=== PATIENT | female | born 1930 | race Caucasian/White ===

== ENCOUNTER 2018-01-01 09:03 | Emergency (ER) | payer MEDICARE, OTHER ==
[~2018-01-01] VITALS: Ht 175.3 cm; Wt 64.0 kg
[~2018-01-01 09:03] MED LIST: ASPI-1265 PO; ATOR10TA87 PO; BUDE10.22 INH; CALC500T63 PO; CYAN-19 PO; MONT10TA21 PO; MULT-1074 PO; OMEG500C PO; RAMI2.5C2 PO; VITA100C5 PO; ZOL50T PO
[2018-01-01 10:43] LABS: ALANINE AMINOTRANSFERASE 9 U/L (12-78); ALBUMIN 2.9 G/DL (3.4-5.0); ALBUMIN/GLOBULIN RATIO 0.8 (1.1-1.5); ALKALINE PHOSPHATASE 76 IU/L (46-116); ANION GAP 8 (8-16); ASPARTATE AMINO TRANSFERASE 17 U/L (10-37); BILIRUBIN,TOTAL 0.7 MG/DL (0.1-1.0); BLOOD UREA NITROGEN 12 MG/DL (7-18); BUN/CREATININE RATIO 10.2 (6.6-38.0); CALCIUM 10.1 MG/DL (8.5-10.1); CHLORIDE 98 MMOL/L (99-107); CREATININE 1.18 MG/DL (0.40-0.90); GLUCOSE 119 MG/DL (70-104); POTASSIUM 3.9 MMOL/L (3.5-5.1); SODIUM 132 MMOL/L (135-145); TOTAL CARBON DIOXIDE 25.7 MMOL/L (24-32); TOTAL PROTEIN 6.7 G/DL (6.4-8.2); eGFR 44 ML/MIN
[2018-01-01 11:01] LABS: BASOPHILS % (AUTO) 0.1 % (0-1); EOSINOPHILS % (AUTO) 0 % (0-6); HEMATOCRIT 41.1 % (35.0-45.0); HEMOGLOBIN 13.6 g/dl (12.0-16.0); LYMPHOCYTES # (AUTO) 0.9 X10'3 (1.1-4.8); LYMPHOCYTES % (AUTO) 5.5 % (21-51); MEAN CORPUSCULAR HEMOGLOBIN 33.4 PG (27.0-31.0); MEAN CORPUSCULAR HGB CONC 33.2 % (33.0-36.5); MEAN CORPUSCULAR VOLUME 100.6 FL (78-98); MEAN PLATELET VOLUME 7.4 FL (7.4-10.4); MONOCYTES # (AUTO) 1.4 X10'3 (0-0.9); MONOCYTES % (AUTO) 8.2 % (2-12); NEUTROPHILS # (AUTO) 14.4 X10'3 (1.8-7.7); NEUTROPHILS % (AUTO) 86.2 % (42-75); PLATELET COUNT 200 X10'3 (140-440); RED BLOOD COUNT 4.09 X10'6 (4.20-5.60); RED CELL DISTRIBUTION WIDTH 12.5 % (11.5-14.5); WHITE BLOOD COUNT 16.7 X10'3 (4.5-11.0)
[2018-01-01 11:14] LABS: INR 1.1 INR; PARTIAL THROMBOPLASTIN TIME 31 SECONDS (22-32); PROTHROMBIN TIME 11.4 SECONDS (9.0-12.0)
[2018-01-01] MEDS ORDERED: normal saline 1000ML IV soln IVB ONE (12:05)
[2018-01-01 12:43] LABS: PLATELET ESTIMATE NORMAL; TOTAL CELLS COUNTED 100
[2018-01-01 13:39] VITALS: BP 111/58
== END 2018-01-01 13:42 | disposition home or self-care (01) ==
LOC: ER 09:03
DX: R19.7 Diarrhea, unspecified (principal); R51 Headache; R11.2 Nausea with vomiting, unspecified; Z79.82 Long term (current) use of aspirin; Z98.890 Other specified postprocedural states; Z79.899 Other long term (current) drug therapy
CPT/HCPCS: 36415; 70450; 74176; 80053; 85025; 85610; 85730; 96360; 99284; J7030

== ENCOUNTER 2018-01-02 09:19 | Inpatient (IN) | payer MEDICARE, OTHER ==
[~2018-01-02] VITALS: Ht 175.3 cm; Wt 65.0 kg
[2018-01-02] MEDS ORDERED: normal saline 1000ML IV soln IVB ONE (10:35)
[2018-01-02 10:54] LABS: BASOPHILS % (AUTO) 0.2 % (0-1); EOSINOPHILS % (AUTO) 0 % (0-6); HEMATOCRIT 45.2 % (35.0-45.0); HEMOGLOBIN 15.2 g/dl (12.0-16.0); LYMPHOCYTES # (AUTO) 1.2 X10'3 (1.1-4.8); LYMPHOCYTES % (AUTO) 5.6 % (21-51); MEAN CORPUSCULAR HEMOGLOBIN 33.7 PG (27.0-31.0); MEAN CORPUSCULAR HGB CONC 33.7 % (33.0-36.5); MEAN CORPUSCULAR VOLUME 100.2 FL (78-98); MEAN PLATELET VOLUME 7.4 FL (7.4-10.4); MONOCYTES # (AUTO) 1.6 X10'3 (0-0.9); MONOCYTES % (AUTO) 7.4 % (2-12); NEUTROPHILS # (AUTO) 18.7 X10'3 (1.8-7.7); NEUTROPHILS % (AUTO) 86.8 % (42-75); PLATELET COUNT 220 X10'3 (140-440); RED BLOOD COUNT 4.51 X10'6 (4.20-5.60); RED CELL DISTRIBUTION WIDTH 12.6 % (11.5-14.5); WHITE BLOOD COUNT 21.5 X10'3 (4.5-11.0)
[2018-01-02 11:08] LABS: ALANINE AMINOTRANSFERASE 10 U/L (12-78); ALBUMIN 2.7 G/DL (3.4-5.0); ALBUMIN/GLOBULIN RATIO 0.7 (1.1-1.5); ALKALINE PHOSPHATASE 82 IU/L (46-116); ANION GAP 9 (8-16); ASPARTATE AMINO TRANSFERASE 16 U/L (10-37); BILIRUBIN,TOTAL 0.5 MG/DL (0.1-1.0); BLOOD UREA NITROGEN 17 MG/DL (7-18); BUN/CREATININE RATIO 16.5 (6.6-38.0); CALCIUM 9.6 MG/DL (8.5-10.1); CHLORIDE 99 MMOL/L (99-107); CREATININE 1.03 MG/DL (0.40-0.90); GLUCOSE 133 MG/DL (70-104); POTASSIUM 3.6 MMOL/L (3.5-5.1); SODIUM 134 MMOL/L (135-145); TOTAL CARBON DIOXIDE 25.6 MMOL/L (24-32); TOTAL PROTEIN 6.4 G/DL (6.4-8.2); eGFR 51 ML/MIN
[2018-01-02 11:12] LABS: PLATELET ESTIMATE NORMAL; TOTAL CELLS COUNTED 100
[2018-01-02 11:41] LABS: CLARITY,URINE CLOUDY (Clear); COLOR,URINE YELLOW (Yellow); GLUCOSE, URINE NEGATIVE (Neg); KETONES,URINE NEGATIVE (Neg); LEUKOCYTE ESTERASE ,URINE LARGE (Neg); NITRITES, URINE NEGATIVE (Neg); OCCULT BLOOD,URINE MODERATE (Neg); PH,URINE 6.5 (4.8-8.0); PROTEIN,URINE TRACE mg/dl (Neg); UROBILINOGEN,URINE 0.2 E.U/dL (0.2-1.0)
[2018-01-02 11:56] LABS: UA COLLECTION TYPE URINAL
[2018-01-02 12:05] LABS: BACTERIA,URINE 3+ /HPF (Neg); SQUAMOUS EPITHELIAL CELL,UR FEW /LPF (FEW)
[2018-01-02] MEDS ORDERED: CefTRIAXone 2gm/D5W 50ml 50 ML IV ONE (12:10)
[2018-01-02] MEDS ORDERED: iohexol 300mg/ml 100ml inj. ONE (12:56)
[2018-01-02] MEDS ORDERED: vancomycin 125mg/5ml ORAL solution 5ml UD bottle PO SCH (15:30)
[2018-01-02] MEDS ORDERED: ondansetron/PF 4mg/2ml inj IV PRN (21:55)
[2018-01-02] MEDS ORDERED: vancomycin 250MG/10ML UD oral solution 10ML BOTTLE PO SCH (21:55)
[2018-01-02] MEDS ORDERED: acetaminophen 325mg tablet PO PRN ×2 (21:55)
[2018-01-02] MEDS ORDERED: metroNIDAZOLE-Flagyl 500mg/NS 100 ML IV ONE (22:15)
[2018-01-02 22:50] VITALS: BP 145/74
[2018-01-02] MEDS: normal saline 1000ml 1,000 ML IV SCH (22:50)
[2018-01-03] MEDS: vancomcyin 250mg capsules PO SCH ×3 (01:52→15:29)
[2018-01-03 02:27] LABS: BASOPHILS % (AUTO) 0 % (0-1); EOSINOPHILS % (AUTO) 0 % (0-6); HEMATOCRIT 44.6 % (35.0-45.0); HEMOGLOBIN 14.9 g/dl (12.0-16.0); LYMPHOCYTES # (AUTO) 1.2 X10'3 (1.1-4.8); LYMPHOCYTES % (AUTO) 5.2 % (21-51); MEAN CORPUSCULAR HEMOGLOBIN 33.6 PG (27.0-31.0); MEAN CORPUSCULAR HGB CONC 33.5 % (33.0-36.5); MEAN CORPUSCULAR VOLUME 100.2 FL (78-98); MEAN PLATELET VOLUME 7.5 FL (7.4-10.4); MONOCYTES # (AUTO) 1.8 X10'3 (0-0.9); MONOCYTES % (AUTO) 7.7 % (2-12); NEUTROPHILS # (AUTO) 20.2 X10'3 (1.8-7.7); NEUTROPHILS % (AUTO) 87.1 % (42-75); PLATELET COUNT 225 X10'3 (140-440); RED BLOOD COUNT 4.45 X10'6 (4.20-5.60); RED CELL DISTRIBUTION WIDTH 12.8 % (11.5-14.5); WHITE BLOOD COUNT 23.2 X10'3 (4.5-11.0)
[2018-01-03 02:36] LABS: ALBUMIN 2.3 G/DL (3.4-5.0); ANION GAP 9 (8-16); BLOOD UREA NITROGEN 18 MG/DL (7-18); BUN/CREATININE RATIO 20.2 (6.6-38.0); CALCIUM 9.2 MG/DL (8.5-10.1); CHLORIDE 104 MMOL/L (99-107); CREATININE 0.89 MG/DL (0.40-0.90); GLUCOSE 133 MG/DL (70-104); SODIUM 136 MMOL/L (135-145); TOTAL CARBON DIOXIDE 22.8 MMOL/L (24-32); eGFR 60 ML/MIN
[2018-01-03] MEDS: albuterol 2.5 MG/3 ML nebule NEB SCH ×4 (02:41→19:54)
[2018-01-03 02:44] LABS: POTASSIUM 3.8 MMOL/L (3.5-5.1)
[2018-01-03 02:52] LABS: PLATELET ESTIMATE NORMAL; TOTAL CELLS COUNTED 100
[2018-01-03 07:10] VITALS: BP 124/63
[2018-01-03] MEDS: budesonide 0.5mg/2ml UD nebule IH SCH ×2 (07:56→19:55)
[2018-01-03] MEDS ORDERED: [UNRECOGNIZED DRUG - OTHER] INH SCH (08:00)
[2018-01-03] MEDS ORDERED: BUDESONIDE INH SCH (08:00)
[2018-01-03] MEDS ORDERED: FORMOTEROL FUMARATE INH SCH (08:00)
[2018-01-03] MEDS ORDERED: metroNIDAZOLE-Flagyl 500mg/NS 100 ML IV ONE (08:00)
[2018-01-03] MEDS: sertraline 50mg tablet PO SCH (08:19)
[2018-01-03] MEDS: montelukast 10mg tablet PO SCH (08:19)
[2018-01-03 09:12] LABS: C DIFF ANTIGEN POSITIVE (NEGATIVE); C DIFF SPECIMEN=DIARRHEA? ACCEPTABLE; C DIFFICILE TOXINS A&B POSITIVE (Neg)
[2018-01-03] MEDS ORDERED: potassium Cl 20 mEq SR tablet PO PRN ×2 (10:15)
[2018-01-03] MEDS ORDERED: magnesium 4gm in 100ml NS 100 ML IV PRN (10:15)
[2018-01-03] MEDS ORDERED: potassium Cl 40MEQ/NS 500ml 500 ML IV PRN ×2 (10:15)
[2018-01-03] MEDS ORDERED: magnesium Cl slow-release 64mg tablet PO PRN (10:15)
[2018-01-03] MEDS: normal saline 1000ml 1,000 ML IV SCH ×2 (11:12→15:34)
[2018-01-03 11:19] VITALS: BP 117/63
[2018-01-03] MEDS: metroNIDAZOLE-Flagyl 500mg/NS 100 ML IV SCH ×3 (12:12→23:31)
[2018-01-03 20:00] VITALS: BP 112/61
[2018-01-03] MEDS: atorvastatin 10mg tablet PO SCH (20:21)
[2018-01-03] MEDS: vancomycin 125mg/5ml ORAL solution 5ml UD bottle PO SCH (20:22)
[2018-01-04] VITALS: BP 111/58
[2018-01-04] MEDS: albuterol 2.5 MG/3 ML nebule NEB SCH ×4 (01:48→20:15)
[2018-01-04] MEDS: vancomycin 125mg/5ml ORAL solution 5ml UD bottle PO SCH ×2 (02:07→07:54)
[2018-01-04] MEDS: normal saline 1000ml 1,000 ML IV SCH (04:58)
[2018-01-04 05:46] LABS: BASOPHILS % (AUTO) 0 % (0-1); EOSINOPHILS % (AUTO) 0 % (0-6); HEMATOCRIT 38.6 % (35.0-45.0); LYMPHOCYTES # (AUTO) 1.1 X10'3 (1.1-4.8); LYMPHOCYTES % (AUTO) 4.2 % (21-51); MEAN CORPUSCULAR HEMOGLOBIN 33.3 PG (27.0-31.0); MEAN CORPUSCULAR HGB CONC 33.6 % (33.0-36.5); MEAN CORPUSCULAR VOLUME 99.1 FL (78-98); MEAN PLATELET VOLUME 7.3 FL (7.4-10.4); MONOCYTES # (AUTO) 1.7 X10'3 (0-0.9); MONOCYTES % (AUTO) 6.9 % (2-12); NEUTROPHILS # (AUTO) 22.5 X10'3 (1.8-7.7); NEUTROPHILS % (AUTO) 88.9 % (42-75); PLATELET COUNT 224 X10'3 (140-440); RED CELL DISTRIBUTION WIDTH 12.8 % (11.5-14.5)
[2018-01-04 05:57] LABS: ALBUMIN 1.9 G/DL (3.4-5.0); ANION GAP 9 (8-16); BLOOD UREA NITROGEN 22 MG/DL (7-18); BUN/CREATININE RATIO 25.3 (6.6-38.0); CALCIUM 8.6 MG/DL (8.5-10.1); CHLORIDE 105 MMOL/L (99-107); CREATININE 0.87 MG/DL (0.40-0.90); GLUCOSE 131 MG/DL (70-104); POTASSIUM 3.2 MMOL/L (3.5-5.1); SODIUM 138 MMOL/L (135-145); TOTAL CARBON DIOXIDE 23.9 MMOL/L (24-32); eGFR 62 ML/MIN
[2018-01-04 06:02] LABS: WHITE BLOOD COUNT 25.3 X10'3 (4.5-11.0)
[2018-01-04 07:37] LABS: PLATELET ESTIMATE NORMAL; TOTAL CELLS COUNTED 100
[2018-01-04] MEDS ORDERED: potassium Cl oral solution 20 MEQ/15 ML PO PRN (07:40)
[2018-01-04] MEDS: montelukast 10mg tablet PO SCH (07:52)
[2018-01-04] MEDS: metroNIDAZOLE-Flagyl 500mg/NS 100 ML IV SCH ×2 (07:52→16:38)
[2018-01-04] MEDS: sertraline 50mg tablet PO SCH (07:56)
[2018-01-04] MEDS: budesonide 0.5mg/2ml UD nebule IH SCH ×2 (08:00→20:15)
[2018-01-04 08:12] VITALS: BP 104/65
[2018-01-04 11:30] VITALS: BP 105/58
[2018-01-04] MEDS ORDERED: vancomycin 125mg/5ml ORAL solution 5ml UD bottle PO SCH (14:00)
[2018-01-04] MEDS: lactose-reduced food (Ensure Enlive) - 237ml bottle PO SCH ×2 (18:26→21:03)
[2018-01-04 20:00] VITALS: BP 123/66
[2018-01-04] MEDS ORDERED: vancomcyin 250mg capsules PO ONE (20:50)
[2018-01-04] MEDS: atorvastatin 10mg tablet PO SCH (20:50)
[2018-01-05] VITALS: BP 114/60
[2018-01-05] MEDS: metroNIDAZOLE-Flagyl 500mg/NS 100 ML IV SCH ×3 (00:11→15:36)
[2018-01-05] MEDS: normal saline 1000ml 1,000 ML IV SCH (00:12)
[2018-01-05] MEDS: vancomcyin 250mg capsules PO SCH ×3 (02:17→15:35)
[2018-01-05] MEDS: albuterol 2.5 MG/3 ML nebule NEB SCH ×3 (02:51→20:57)
[2018-01-05 05:59] LABS: BASOPHILS % (AUTO) 0.1 % (0-1); EOSINOPHILS % (AUTO) 0.1 % (0-6); HEMATOCRIT 37.7 % (35.0-45.0); HEMOGLOBIN 12.5 g/dl (12.0-16.0); LYMPHOCYTES # (AUTO) 1.1 X10'3 (1.1-4.8); LYMPHOCYTES % (AUTO) 4.1 % (21-51); MEAN CORPUSCULAR HEMOGLOBIN 33.2 PG (27.0-31.0); MEAN CORPUSCULAR HGB CONC 33.3 % (33.0-36.5); MEAN CORPUSCULAR VOLUME 99.9 FL (78-98); MEAN PLATELET VOLUME 7.9 FL (7.4-10.4); MONOCYTES # (AUTO) 1.5 X10'3 (0-0.9); MONOCYTES % (AUTO) 5.5 % (2-12); NEUTROPHILS # (AUTO) 24.6 X10'3 (1.8-7.7); NEUTROPHILS % (AUTO) 90.2 % (42-75); PLATELET COUNT 208 X10'3 (140-440); RED BLOOD COUNT 3.77 X10'6 (4.20-5.60); RED CELL DISTRIBUTION WIDTH 12.8 % (11.5-14.5)
[2018-01-05 06:18] LABS: ALBUMIN 1.8 G/DL (3.4-5.0); ANION GAP 8 (8-16); BLOOD UREA NITROGEN 20 MG/DL (7-18); BUN/CREATININE RATIO 24.7 (6.6-38.0); CALCIUM 8.6 MG/DL (8.5-10.1); CHLORIDE 105 MMOL/L (99-107); CREATININE 0.81 MG/DL (0.40-0.90); GLUCOSE 137 MG/DL (70-104); POTASSIUM 3.3 MMOL/L (3.5-5.1); SODIUM 136 MMOL/L (135-145); TOTAL CARBON DIOXIDE 22.9 MMOL/L (24-32); eGFR 67 ML/MIN
[2018-01-05 06:28] LABS: WHITE BLOOD COUNT 27.3 X10'3 (4.5-11.0)
[2018-01-05 07:23] VITALS: BP 117/63
[2018-01-05 07:44] LABS: TOTAL CELLS COUNTED 100
[2018-01-05 07:45] LABS: PLATELET ESTIMATE NORMAL
[2018-01-05] MEDS: montelukast 10mg tablet PO SCH (09:31)
[2018-01-05] MEDS: potassium Cl oral solution 20 MEQ/15 ML PO PRN ×2 (09:32→15:36)
[2018-01-05] MEDS: sertraline 50mg tablet PO SCH (09:32)
[2018-01-05] MEDS: budesonide 0.5mg/2ml UD nebule IH SCH ×2 (09:57→20:57)
[2018-01-05 12:00] VITALS: BP 104/54
[2018-01-05] MEDS: lactose-reduced food (Ensure Enlive) - 237ml bottle PO SCH ×2 (13:00→18:00)
[2018-01-05] MEDS: dextrose 5%-normal saline 1,000 ML IV SCH (14:00)
[2018-01-05] MEDS: diatr meglu/diatrizoate 30ml oral sol.-(3 dose) bottle PO SCH ×3 (14:00→20:21)
[2018-01-05 18:00] VITALS: BP 122/63
[2018-01-05] MEDS: vancomycin 250MG/10ML UD oral solution 10ML BOTTLE PO SCH (21:13)
[2018-01-05] MEDS: atorvastatin 10mg tablet PO SCH (21:13)
[2018-01-06] VITALS: BP 122/66
[2018-01-06] MEDS: metroNIDAZOLE-Flagyl 500mg/NS 100 ML IV SCH ×2 (00:16→07:50)
[2018-01-06] MEDS: vancomycin 250MG/10ML UD oral solution 10ML BOTTLE PO SCH ×2 (01:41→07:50)
[2018-01-06] MEDS: albuterol 2.5 MG/3 ML nebule NEB SCH ×2 (03:36→08:24)
[2018-01-06 05:46] LABS: BASOPHILS % (AUTO) 0 % (0-1); EOSINOPHILS # (AUTO) 0.4 X10'3 (0-0.9); EOSINOPHILS % (AUTO) 1.6 % (0-6); HEMATOCRIT 41.5 % (35.0-45.0); HEMOGLOBIN 13.8 g/dl (12.0-16.0); LYMPHOCYTES # (AUTO) 1.1 X10'3 (1.1-4.8); LYMPHOCYTES % (AUTO) 4.3 % (21-51); MEAN CORPUSCULAR HEMOGLOBIN 33.1 PG (27.0-31.0); MEAN CORPUSCULAR HGB CONC 33.2 % (33.0-36.5); MEAN CORPUSCULAR VOLUME 99.8 FL (78-98); MEAN PLATELET VOLUME 7.6 FL (7.4-10.4); MONOCYTES % (AUTO) 3.8 % (2-12); NEUTROPHILS # (AUTO) 23.5 X10'3 (1.8-7.7); NEUTROPHILS % (AUTO) 90.3 % (42-75); PLATELET COUNT 219 X10'3 (140-440); RED BLOOD COUNT 4.16 X10'6 (4.20-5.60); RED CELL DISTRIBUTION WIDTH 12.7 % (11.5-14.5)
[2018-01-06 06:03] LABS: ALBUMIN 2.1 G/DL (3.4-5.0); ANION GAP 8 (8-16); BLOOD UREA NITROGEN 13 MG/DL (7-18); BUN/CREATININE RATIO 17.3 (6.6-38.0); CALCIUM 8.5 MG/DL (8.5-10.1); CHLORIDE 106 MMOL/L (99-107); CREATININE 0.75 MG/DL (0.40-0.90); GLUCOSE 141 MG/DL (70-104); POTASSIUM 3.2 MMOL/L (3.5-5.1); SODIUM 136 MMOL/L (135-145); TOTAL CARBON DIOXIDE 22.4 MMOL/L (24-32); eGFR 73 ML/MIN
[2018-01-06 06:41] LABS: TOTAL CELLS COUNTED 100
[2018-01-06 06:42] LABS: BURR CELLS 1+; PLATELET ESTIMATE NORMAL; TOXIC GRANULATION 2+
[2018-01-06 07:03] VITALS: BP 124/69
[2018-01-06] MEDS: sertraline 50mg tablet PO SCH (07:42)
[2018-01-06] MEDS: montelukast 10mg tablet PO SCH (07:43)
[2018-01-06] MEDS: lactose-reduced food (Ensure Enlive) - 237ml bottle PO SCH ×2 (07:50→12:36)
[2018-01-06] MEDS: budesonide 0.5mg/2ml UD nebule IH SCH (08:00)
[2018-01-06] MEDS: dextrose 5%-normal saline 1,000 ML IV SCH (09:25)
[2018-01-06] MEDS: potassium Cl oral solution 20 MEQ/15 ML PO PRN (10:02)
[2018-01-06 11:13] VITALS: BP 111/62
[2018-01-06] MEDS ORDERED: morphine 4 MG/ML inj SYRINge IV PRN (13:50)
[2018-01-06] MEDS ORDERED: LORazepam 2 mg/ml vial IV PRN (13:50)
[2018-01-06] MEDS ORDERED: morphine 10mg/0.5ml (conc. morphine) oral syringe PO PRN (13:50)
== END 2018-01-07 11:40 | disposition expired | DRG 871 ==
LOC: ER 09:19 → ED HOLD 21:52 → SUR 3N 22:40
PROVIDERS: ADMIT Internal Medicine; ATTEND Family Medicine
DX: A41.9 Sepsis, unspecified organism (principal); E43 Unspecified severe protein-calorie malnutrition; A04.72 Enterocolitis due to Clostridium difficile, not specified as recurrent; N39.0 Urinary tract infection, site not specified; R65.20 Severe sepsis without septic shock; F03.90 Unspecified dementia, unspecified severity, without behavioral disturbance, psychotic disturbance, mood disturbance, and anxiety; E78.5 Hyperlipidemia, unspecified; E86.0 Dehydration; F32.9 Major depressive disorder, single episode, unspecified; W18.39XA Other fall on same level, initial encounter; R91.8 Other nonspecific abnormal finding of lung field; I46.9 Cardiac arrest, cause unspecified; E87.6 Hypokalemia; I10 Essential (primary) hypertension; R29.6 Repeated falls; J44.9 Chronic obstructive pulmonary disease, unspecified; M81.0 Age-related osteoporosis without current pathological fracture; Z66 Do not resuscitate; Z51.5 Encounter for palliative care; Z95.0 Presence of cardiac pacemaker; Z88.1 Allergy status to other antibiotic agents; Z79.82 Long term (current) use of aspirin; Z79.899 Other long term (current) drug therapy; Y93.89 Activity, other specified; Y92.89 Other specified places as the place of occurrence of the external cause; Y99.8 Other external cause status; Z68.21 Body mass index [BMI] 21.0-21.9, adult
CPT/HCPCS: 36415; 71045; 71260; 74176; 74177; 80048; 80053; 81001; 82140; 83605; 85025; 87040; 87070; 87077; 87088; 87186; 87324; 87449; 94640; 94760; 96361; 96365; 96366; 99285; G0378; J0696; J2060; J2270; J3480; J3490; J7030; J7042; J7626; Q9963; Q9967